=== PATIENT | male | born 1995 | race Caucasian/White ===

== ENCOUNTER 2020-04-29 10:47 | Emergency (ER) | payer OTHER ==
[~2020-04-29 10:47] MED LIST: CLEOCIN HCL300 MG PO; NORCO 10-325 T1 EACH PO
[2020-04-29 11:56] LABS: HEMOGLOBIN 16.2 gm/dl (14.0-17.5); RED BLOOD COUNT 5.42 M/UL (4.20-5.50); WHITE BLOOD COUNT 18.4 K/UL (4.5-11.0)
[2020-04-29 12:12] LABS: BUN/CREATININE RATIO 9 (0-10)
[2020-04-29] MEDS ORDERED: VIBRAMYCIN100 MG PO (16:32)
== END 2020-04-29 16:49 | disposition home or self-care (01) ==
LOC: ER1 10:47
DX: J18.9 Pneumonia, unspecified organism (principal); R59.0 Localized enlarged lymph nodes; F17.200 Nicotine dependence, unspecified, uncomplicated; Z20.822 Contact with and (suspected) exposure to COVID-19
CPT/HCPCS: 70491; 71045; 80053; 83605; 85025; 86403; 87040; 87081; 87880; 96365; 99284; J2543; J7030; Q9962; U0002

== ENCOUNTER 2020-05-01 11:09 | Emergency (ER) | payer OTHER ==
[~2020-05-01 11:09] MED LIST changes: +VIBRAMYCIN100 MG PO
== END 2020-05-01 13:05 | disposition home or self-care (01) ==
LOC: ER1 11:09
DX: J02.9 Acute pharyngitis, unspecified (principal); F17.200 Nicotine dependence, unspecified, uncomplicated
CPT/HCPCS: 99282; J0561; J1100